=== PATIENT | female | born 1995 | race Caucasian/White ===

== ENCOUNTER 2017-05-15 21:24 | Emergency (ER) ==
[2017-05-15 21:31] VITALS: BP 130/86; TEMP 97.9; BMI 33.5
--- NOTE | 2017-05-15 22:00 | ED.PDOC ---
General ED Provider: Dr. SUZANNA HSU Chief Complaint: Abdominal Pain Stated Complaint: Patient complains of epigastric pain radiating to the chest. Has been going on for 2 days. States that the pain occurs every time she eats or drinks and feels like it gets stuck after swallowing. Describes as the pain as sharp. Time Seen by Physician: 21:30 Mode of Arrival: Walk-In Information Source: Patient Exam Limitations: No limitations Primary Care Provider: BRENDEN SALEH Nursing and Triage Documentation Reviewed and Agree: Yes GI Complaint Exam - Abdominal Pain Complaint/Exam Onset: Sudden Duration: 2 days Symptoms Are: Resolved Timing: Intermittent Initial Severity: Moderate Current Severity: None Location of Pain: Epigastric Radiates To: Reports: Chest Character: Reports: Sharp Aggravating: Reports: Food Alleviating: Reports: None Associated Signs and Symptoms: Reports: Chest pain. Denies: Diaphoresis, Fever , Cough, Dizziness, Back pain, Constipation, Blood in stool, Dysuria, Urinary frequency, Decreased urine output, Decreased appetite, Vaginal bleeding, Vaginal discharge, Nausea, Vomiting, Diarrhea, Sore throat, Decreased activity AAA Risk Factors: Reports: None Cardiac Risk Factors: Reports: None Ectopic Risk Factors: Reports: None Ovarian Torsion Risk Factors: Reports: None Surgical Obstruction Risk Factors: Reports: None Related Surgical History: Reports: None Patient Rh Status: Unknown Abdominal Findings: Present: None Vulva Exam: Present: Normal Findings Vaginal Exam: Present: Normal Findings Cervical Exam: Present: Normal findings Differential Diagnoses: PUD Review of Systems - Review Of Systems Constitutional: Reports: No symptoms Eyes: Reports: No symptoms Ears, Nose, Mouth, Throat: Reports: No symptoms Respiratory: Reports: No symptoms Cardiac: Reports: Chest pain GI: Reports: Abdominal pain, Nausea : Reports: No symptoms Musculoskeletal: Reports: No symptoms Skin: Reports: No symptoms Neurological: Reports: No symptoms Endocrine: Reports: No symptoms Hematologic/Lymphatic: Reports: No symptoms All Other Systems: Reviewed and Negative Past Medical History - Past Medical History Previously Healthy: Yes Endocrine: Reports: None Cardiovascular: Reports: None Respiratory: Reports: None Hematological: Reports: None Gastrointestinal: Reports: None Genitourinary: Reports: None Neuro/Psych: Reports: None Musculoskeletal: Reports: None Cancer: Reports: None Last Menstrual Period: 04/30/17 - Surgical History General Surgical History: Reports: None - Family History Family History: Reports: None - Social History Smoking Status: Never smoker Hx Substance Use: No Alcohol Screening: None - Immunizations Tetanus Shot up to Date: Yes Physical Exam - Physical Exam Appearance: Well-appearing, No pain distress, Well-nourished Eyes: CITLALI, EOMI, Conjunctiva clear ENT: Ears normal, Nose normal, Oropharynx normal Respiratory: Airway patent, Breath sounds clear, Breath sounds equal, Respirations nonlabored Cardiovascular: RRR, Pulses normal, No rub, No murmur GI/: Soft, Nontender, No masses, Bowel sounds normal, No Organomegaly Musculoskeletal: Normal strength, ROM intact, No edema, No calf tenderness Skin: Warm, Dry, Normal color Neurological: Sensation intact, Motor intact, Reflexes intact, Cranial nerves intact, Alert, Oriented Psychiatric: Affect appropriate, Mood appropriate Critical Care Note - Critical Care Note Total Time (mins): 0 Course - Course Vital Signs: Temp Pulse Resp BP Pulse Ox 05/15/17 21:25 97.9 F 96 H 20 130/86 99 Departure - Departure Time of Disposition: 21:58 Disposition: HOME SELF-CARE Discharge Problem: Dyspepsia Instructions: Indigestion (ED) Condition: Good Pt referred to PMD for follow-up: Yes Additional Instructions: Take medications as prescribed Follow up with PCP in 3-5 days Avoid foods that cause symptoms Prescriptions: Pantoprazole Sodium [Protonix] 40 mg PO DAILY #30 tablet. Allergies/Adverse Reactions: Allergies No Known Allergies Allergy (Verified 05/15/17 21:31) Home Medications: Ambulatory Orders Norethindrone-Ethinyl Estrad [Pirmella] 1 each PO DAILY 05/15/17 Pantoprazole Sodium [Protonix] 40 mg PO DAILY #30 tablet. 05/15/17 Ranitidine HCl [Zantac] 150 mg PO ONCE 05/15/17 Disposition Discussed With: Patient, Family
== END 2017-05-15 22:02 | disposition home or self-care (01) ==
LOC: ED 21:24
DX: R10.13 Epigastric pain (principal); K30 Functional dyspepsia
CPT/HCPCS: 99282

== ENCOUNTER 2018-10-19 20:28 | Emergency (ER) ==
[2018-10-19 20:35] VITALS: BP 139/92; TEMP 99.1; BMI 35.5
[2018-10-19] MEDS ORDERED: LIDOCAINE HCL 1% SDV SUBCUT STA (20:53)
--- NOTE | 2018-10-19 20:55 | ED.PDOC ---
General ED Provider: Dr. AZRA CURRY Chief Complaint: Laceration Stated Complaint: laceration right lower leg Time Seen by Physician: 08:45 (see photos) Mode of Arrival: Walk-In Information Source: Patient Exam Limitations: No limitations Primary Care Provider: BRENDEN SALEH Nursing and Triage Documentation Reviewed and Agree: Yes Does patient meet sepsis criteria?: No System Inflammatory Response Syndrome: Not Applicable Sepsis Protocol: For patient's 13 years and over: Temp is 96.8 and below OR 101 and greater Pulse >90 BPM Resp >20/minute Acutely Altered Mental Status Are patient's symptoms suggestive of a new infection, such as: -Pneumonia -Skin, Soft Tissue -Endocarditis -UTI -Bone, Joint Infection -Implantable Device -Acute Abdominal Infection -Wound Infection -Meningitis -Blood Stream Catheter Infection -Unknown Review of Systems - Review Of Systems Constitutional: Reports: No symptoms Eyes: Reports: No symptoms Ears, Nose, Mouth, Throat: Reports: No symptoms Respiratory: Reports: No symptoms Cardiac: Reports: No symptoms GI: Reports: No symptoms : Reports: No symptoms Musculoskeletal: Reports: No symptoms Skin: Reports: Other (laceration see photos) Neurological: Reports: No symptoms Endocrine: Reports: No symptoms Hematologic/Lymphatic: Reports: No symptoms All Other Systems: Reviewed and Negative Past Medical History - Past Medical History Previously Healthy: Yes Endocrine: Reports: None Cardiovascular: Reports: None Respiratory: Reports: None Hematological: Reports: None Gastrointestinal: Reports: None Genitourinary: Reports: None Neuro/Psych: Reports: None Musculoskeletal: Reports: None Cancer: Reports: None Last Menstrual Period: 1 month - Surgical History General Surgical History: Reports: None - Family History Family History: Reports: None - Social History Smoking Status: Never smoker Hx Substance Use: No Alcohol Screening: None - Immunizations Tetanus Shot up to Date: Yes Physical Exam - Physical Exam Appearance: Well-appearing, No pain distress, Well-nourished Eyes: CITLALI, EOMI, Conjunctiva clear ENT: Ears normal, Nose normal, Oropharynx normal Respiratory: Airway patent, Breath sounds clear, Breath sounds equal, Respirations nonlabored Cardiovascular: RRR, Pulses normal, No rub, No murmur GI/: Soft, Nontender, No masses, Bowel sounds normal, No Organomegaly Musculoskeletal: Normal strength, ROM intact, No edema, No calf tenderness Skin: Warm, Dry (1.5 laceration right lower leg see photos) Neurological: Sensation intact, Motor intact, Reflexes intact, Cranial nerves intact, Alert, Oriented Psychiatric: Affect appropriate, Mood appropriate Procedures - Laceration/Wound Repair No standard instances Wound Description: Linear Wound Length (cm): 1.5cm laceration right lower leg Wound Width: 4mm Wound Depth: 3mm Wound Explored: Clean Wound Prep: Saline Anesthesia: Lidocaine (1ml plain 1%) Wound Debrided: Minimal Undermining: Minimal Wound Margins: Vermilion border aligned Wound Repaired With: Sutures Suture Size and Type: 3 prolene Number of Sutures: 0 Number of [place]: 7 Layer Closure?: No Critical Care Note - Critical Care Note Total Time (mins): 0 Course - Course Orders, Labs, Meds: Orders Category Date Time Status Lidocaine HCl/Pf [Lidocaine HCl 1% Sdv] MEDS 10/19/18 20:53 Stat 5 ml SUBCUT ONCE STA Vital Signs: Temp Pulse Resp BP Pulse Ox 10/19/18 20:30 99.1 F 105 H 16 139/92 H 98 Departure - Departure Time of Disposition: 21:20 Disposition: HOME SELF-CARE Discharge Problem: Laceration - injury Instructions: Staple Care (ED) Condition: Good Pt referred to PMD for follow-up: Yes IPMP verified?: No Additional Instructions: Please call your Family Physician as soon as possible to schedule a follow-up appointment. Allergies/Adverse Reactions: Allergies No Known Allergies Allergy (Verified 10/19/18 20:43) Home Medications: Ambulatory Orders 1 [No Reported Medications] 10/19/18
== END 2018-10-19 21:22 | disposition home or self-care (01) ==
LOC: ED 20:28
DX: S81.811A Laceration without foreign body, right lower leg, initial encounter (principal); W45.8XXA Other foreign body or object entering through skin, initial encounter
CPT/HCPCS: 99283

== ENCOUNTER 2018-12-29 15:56 | Emergency (ER) | payer OTHER ==
[2018-12-29 16:02] VITALS: BP 129/85; TEMP 99.2; BMI 34.3
[2018-12-29] MEDS ORDERED: TORADOL IM STA (17:04)
--- NOTE | 2018-12-29 17:05 | ED.PDOC ---
General ED Provider: Dr. BRENDEN GAMEZ Chief Complaint: Neck Pain Non-Injury Stated Complaint: Neck stiff and sore. No injury. Slept on it wrong Time Seen by Physician: 16:20 Mode of Arrival: Walk-In Information Source: Patient Primary Care Provider: BRENDEN SALEH Nursing and Triage Documentation Reviewed and Agree: Yes Does patient meet sepsis criteria?: No System Inflammatory Response Syndrome: Not Applicable Sepsis Protocol: For patient's 13 years and over: Temp is 96.8 and below OR 101 and greater Pulse >90 BPM Resp >20/minute Acutely Altered Mental Status Are patient's symptoms suggestive of a new infection, such as: -Pneumonia -Skin, Soft Tissue -Endocarditis -UTI -Bone, Joint Infection -Implantable Device -Acute Abdominal Infection -Wound Infection -Meningitis -Blood Stream Catheter Infection -Unknown Musculoskeletal Complaint Exam - Neck Pain Complaint/Exam Mechanism of Injury: Reports: No known trauma Onset/Duration: this AM Symptoms Are: Still present Timing: Intermittent Episodes Lasting: Minutes Initial Severity: Moderate Current Severity: Mild Location: Reports: Discrete Character: Reports: Aching, Stiffness Aggravating: Reports: Position, Movement Alleviating: Reports: Position, OTC meds Associated Signs and Symptoms: Denies: Swelling, Redness, Bruising, Fever, Nuchal rigidity, Weakness, Headache, Paresthesia Related History: Denies: Similar episode Meningitis Risk Factors: Reports: None Cervical Spine Injury Risk Factors: Reports: None Related Surgical History: Reports: None Carotid Bruit Present: No Pain on Passive Flexion: Yes Positive Kernig's Sign: No ROM Limited In: Present: Flexion, Side bending Tenderness: Present: Midline, Paraspinal Radiates to: Absent: Right arm, Left arm Focal Weakness: Present: None Focal Sensory Loss: Reports: None Nexus Low Risk Criteria: No post-midline CS tender, No evidence of intoxicat., No Altered LOC, No focal neuro deficit, No distracting injuries Differential Diagnoses: Strain Review of Systems - Review Of Systems Constitutional: Reports: No symptoms Eyes: Reports: No symptoms Ears, Nose, Mouth, Throat: Reports: No symptoms Respiratory: Reports: No symptoms Cardiac: Reports: No symptoms GI: Reports: No symptoms : Reports: No symptoms Musculoskeletal: Reports: Muscle stiffness, Neck pain Skin: Reports: No symptoms Neurological: Reports: No symptoms Endocrine: Reports: No symptoms Hematologic/Lymphatic: Reports: No symptoms All Other Systems: Reviewed and Negative Past Medical History - Past Medical History Previously Healthy: Yes Endocrine: Reports: None Cardiovascular: Reports: None Respiratory: Reports: None Hematological: Reports: None Gastrointestinal: Reports: None Genitourinary: Reports: None Neuro/Psych: Reports: None Musculoskeletal: Reports: None Cancer: Reports: None Last Menstrual Period: 3 WEEKS AGO - Surgical History General Surgical History: Reports: None - Family History Family History: Reports: None - Social History Smoking Status: Never smoker Hx Substance Use: No Alcohol Screening: None - Immunizations Tetanus Shot up to Date: Yes Physical Exam - Physical Exam Appearance: Well-appearing, No pain distress, Well-nourished Eyes: CITLALI, EOMI, Conjunctiva clear ENT: Ears normal, Nose normal, Oropharynx normal Respiratory: Airway patent, Breath sounds clear, Breath sounds equal, Respirations nonlabored Cardiovascular: RRR, Pulses normal, No rub, No murmur GI/: Soft, Nontender, No masses, Bowel sounds normal, No Organomegaly Musculoskeletal: Normal strength, ROM intact, No edema, No calf tenderness Skin: Warm, Dry, Normal color Neurological: Sensation intact, Motor intact, Reflexes intact, Cranial nerves intact, Alert, Oriented Psychiatric: Affect appropriate, Mood appropriate Interpretation - Radiology Interpretation Radiology Interpretation By: Radiologist Radiology Results: Negative (cervical spine xrays neg for chronic or acute abnormalities) Critical Care Note - Critical Care Note Total Time (mins): 0 Course - Course Orders, Labs, Meds: Orders Category Date Time Status Ketorolac Tromethamine [Toradol] MEDS 12/29/18 17:04 Discontinued 30 mg IM ONCE STA CERVICAL SPINE, 2 OR 3 VIEWS Stat RADS 12/29/18 17:03 Completed Medications Discontinued Medications Generic Name Dose Route Start Last Admin Trade Name Ame PRN Reason Stop Dose Admin Ketorolac Tromethamine 30 mg 12/29/18 17:04 12/29/18 17:20 Toradol IM 12/29/18 17:05 30 mg ONCE STA Administration Vital Signs: Temp Pulse Resp BP Pulse Ox 12/29/18 15:57 99.2 F 102 H 18 129/85 99 Departure - Departure Time of Disposition: 17:40 Disposition: HOME SELF-CARE Discharge Problem: Cervicalgia of [id number] region, Cervical paraspinal muscle spasm Instructions: Muscle Spasm (ED), Neck Pain (ED) Condition: Good Pt referred to PMD for follow-up: Yes (1wk) IPMP verified?: No Additional Instructions: Apply ice to area of soreness for 20 min twice daily After 3 day alternate warm moist heat with Ice Ibuprofen 200mg take 3 tabs 4 times daily Follow up PCP in 1 week Prescriptions: Cyclobenzaprine HCl [Flexeril] 5 mg PO BID PRN 5 Days #10 tablet PRN Reason: Neck pain Allergies/Adverse Reactions: Allergies No Known Allergies Allergy (Verified 12/29/18 16:02) Home Medications: Ambulatory Orders Cyclobenzaprine HCl [Flexeril] 5 mg PO BID PRN 5 Days #10 tablet 12/29/18 Disposition Discussed With: Patient, Family
--- NOTE | 2018-12-30 08:12 | DI ---
EXAM: Three views of the cervical spine. HISTORY: Neck pain COMPARISON: None. FINDINGS: The visualized vertebral body heights and intervertebral disc spaces appear preserved. No evidence o f listhesis is seen. The atlanto-axial interval appears within normal limits. The articular facets appear aligned. The odontoid appears intact. Lung apices appear clear. OPINION: No acute osseous abnormality.
== END 2018-12-29 17:57 | disposition home or self-care (01) ==
LOC: ED 15:56
DX: M54.2 Cervicalgia (principal); M62.838 Other muscle spasm
CPT/HCPCS: 96372; 99282